=== PATIENT | female | born 1990 | race Caucasian/White ===

== ENCOUNTER 2018-02-19 07:27 | Inpatient (IN) | payer BC ==
[2018-02-19] MEDS ORDERED: Terbutaline 1 MG/ML SDV SUBCUT ONE (08:30)
[2018-02-19] MEDS ORDERED: hydrOXYzine HCl 25 MG Tab PO ONE ×2 (08:57→20:29)
--- NOTE | 2018-02-19 09:22 | PCM.LDHP ---
L&D History of Present Illness - General Date of Service: 02/19/18 (to follow ) Admit Problem/Dx: Patient Status Order with Admit Dx/Problem 02/19/18 08:03 Patient Status [ADT] Routine Admission Diagnosis/Problem Admission Diagnosis/Problem Breech presentation 02/19/18 09:18 breech presentation, requesting version attempt Source of Information: Patient, Family, Old Records, Provider History Limitations: Reports: No Limitations - History of Present Illness Introduction:: augusto 27yo @ 39w3d with breech presention requesting repeat attempt at external cephalic version Timing/Duration: Reports: other (none) Location, : Reports: Uterus - Related Data Allergies/Adverse Reactions: Allergies Allergy/AdvReac Type Severity Reaction Status Date / Time No Known Allergies Allergy Verified 02/19/18 07:40 Home Medications: Home Meds Vit W-Ca,Fe,FA(<1 mg) [ Vitamins] 1 each PO DAILY 02/04/18 [ History] Past Medical History - Past Health History Medical/Surgical History: Denies Medical/Surgical History Genitourinary History: Reports: STD (chlamydia Rx, BV) Social & Family History - Family History Family Medical History: Noncontributory - Tobacco Use Smoking Status *Q: Never Smoker Second Hand Smoke Exposure: No - Caffeine Use Caffeine Use: Reports: Coffee Other Caffeine Use: 1-2cups/day - Alcohol Use Date of Last Drink: 02/18/18 Time of Last Drink: 23:00 - Recreational Drug Use Recreational Drug Use: No H&P Review of Systems - Review of Systems: Review Of Systems: See Below General: Reports: No Symptoms HEENT: Reports: No Symptoms Pulmonary: Reports: No Symptoms Cardiovascular: Reports: No Symptoms Gastrointestinal: Reports: No Symptoms Genitourinary: Reports: No Symptoms Musculoskeletal: Reports: No Symptoms Skin: Reports: No Symptoms Psychiatric: Reports: No Symptoms Neurological: Reports: No Symptoms Hematologic/Lymphatic: Reports: No Symptoms Immunologic: Reports: No Symptoms L&D Exam - Exam Exam: See Below - Vital Signs Weight: 160 lb - OB Specific Movement: Active Heart Tones: Present Heart Tones per Min: 130 (reactive) Heart Rate (FHR) Variability: Moderate (6-25 bmp) Presentation: Breech - Exam General: Alert, Oriented HEENT: PERRLA, Conjunctiva Clear, EACs Clear, EOMI, Hearing Intact, Mucosa Moist & Sc[place], Nares Patent, Normal Nasal Septum, Posterior Pharynx Clear, TMs Clear Neck: Supple, Trachea Midline Lungs: Clear to Auscultation, Normal Respiratory Effort Cardiovascular: Regular Rate, Regular Rhythm GI/Abdominal Exam: Normal Bowel Sounds, Soft, Non-Tender, No Organomegaly, No Distention, No Abnormal Bruit, No Mass, Pelvis Stable Rectal Exam: Normal Exam, Normal Rectal Tone Genitourinary: Normal external exam, Normal bimanual exam, Normal speculum exam , Enlarged uterus Back Exam: Normal Inspection, Full Range of Motion Extremities: Normal Inspection, Normal Range of Motion, Non-Tender, No Pedal Edema, Normal Capillary Refill Skin: Warm, Dry, Intact Neurological: Cranial Nerves Intact, Reflexes Equal Bilateral Psychiatric: Alert, Normal Affect, Normal Mood - Problem List (1) Breech presentation SNOMED Code(s): 3510174 ICD Code: O32.1XX0 - MATERNAL CARE FOR BREECH PRESENTATION, UNSP Status: Acute Current Visit: Yes (2) Term SNOMED Code(s): 94719275 ICD Code: Z34.80 - ENCOUNTER FOR SUPRVSN OF NORMAL , UNSP TRIMESTER Status: Acute Current Visit: Yes Problem List Initiated/Reviewed/Updated: Yes Orders Last 24hrs: Active Orders 24 hr Category Date Time Status Patient Status [ADT] Routine ADT 02/19/18 08:03 Active Non Stress Test [RC] PER UNIT ROUTINE Care 02/19/18 08:03 Active Vital Signs [RC] PER UNIT ROUTINE Care 02/19/18 08:03 Active OB 2 Or 3 Tri Sgl 1st Gest [US] Routine Exams 02/19/18 08:09 Ordered OB Ltd 1 or More Fetus [US] Routine Exams 02/19/18 08:17 Ordered TYPE AND SCREEN [BBK] Routine Lab 02/19/18 08:30 Received Ondansetron [Zofran] Med 02/19/18 09:30 Once 4 mg IV ONETIME ONE fentaNYL [Sublimaze] Med 02/19/18 09:45 Once 50 mcg IVPUSH ONETIME ONE Resuscitation Status Routine Resus Stat 02/19/18 08:03 Ordered Medication Orders Fentanyl (Sublimaze) 50 mcg IVPUSH ONETIME ONE Stop: 02/19/18 09:46 Ondansetron HCl (Zofran) 4 mg IV ONETIME ONE Stop: 02/19/18 09:31 Assessment/Plan Comment:: plan: will proceed with versio attempt--repeat, per patient request. US has been in and confirmed position. head is in RUQ, spine on maternal lateral left, slightly posterior breech in pelvis. will get Atarax before procedure to help with relaxation and terbutaline side effects. terbutaline 15-30 inutes before procedure. talked with anesthesia re: management of discomfort. agree with Fentanyl 50 5-10 minutes beforehand to help with discomfort. He suggested Zofran before that to minimize nausea. all questions answered and consent obtained. Type and screen ordered. staff ready for stand-by in OR. If unsuccessful, pt will decide re: waiting for labor and possible sponetaneous turn to vertex, vs scheduling elective . she wishes to void if possible. she understands low likelihood of success today. b
[2018-02-19] MEDS ORDERED: Ondansetron 4 MG/2 ML SDV IV ONE (09:30)
[2018-02-19] MEDS ORDERED: fentaNYL 100 MCG/2 ML SDV IVPUSH ONE (09:45)
[2018-02-19] MEDS ORDERED: Tranexamic Acid 1,000 MG in Sodium Chloride 0.9% 100 ML IV PRN (10:08)
[2018-02-19] MEDS ORDERED: Lidocaine 1% 30 ML SDV INJECT PRN (10:08)
[2018-02-19] MEDS ORDERED: Lactated Ringers 500 ML IV ONE (10:08)
[2018-02-19] MEDS ORDERED: Misoprostol 400 MCG (4 X 100 MCG TAB) RECTAL PRN (10:08)
[2018-02-19] MEDS ORDERED: Carboprost Tromethamine 250 MCG/1 ML Amp IM PRN (10:08)
[2018-02-19] MEDS ORDERED: Methylergonovine 0.2 MG/1 ML Amp IM PRN (10:08)
--- NOTE | 2018-02-19 10:12 | PCM.SN ---
- Free Text/Narrative Note: DOS: 02-19-2018 Version successful: unstable lie cervix 1-2 cm 25-50% vertex BOWI Discussed options will proceed with induction low dose pitocin, starting @ 2, increasing by 1-2 @ 15-30min intervals. b
[2018-02-19] MEDS: Oxytocin/Normal Saline 30 UNIT/500 ML BAG IV SCH (10:47)
[2018-02-19] MEDS: Lactated Ringers 1,000 ML IV SCH ×2 (10:48→19:27)
[2018-02-19] MEDS: Sodium Chloride 0.9% 10 ML Syringe FLUSH PRN (10:51)
--- NOTE | 2018-02-19 14:53 | US ---
Clinical history: 27-year-old gravid female breech presentation. Obstetrical version. Interpretation: Enlarged uterus with fundal placenta and a single live ( heart rate 146 bpm) intrauterine gestat ion, breech presentation. Fetus clearly demonstrated in a cephalic presentation posterior clinical "version".
--- NOTE | 2018-02-19 18:11 | PCM.SN ---
- Free Text/Narrative Note: DOS: 02-19-18 6pm Fatuma and Fior in room. She is doing well. feeling cxns, some in back. continues to drain clear fluid. Contractions every 2-4 minutes. pitocin @ 16 baby active with reassuring Cat 1 strip. VSS cervical check now 2-3 cm, 75%, vertex now better applied clear fluid leaking with cervical check Fatuma with employ hydrotherapy will use underwater monitor consider continuing pitocin as needed, or stop and restart if indicated. discussed with pt and FOB. consider internals if indicated. all questions answered. further management pending her course in labor and response to Rx. hmb
[2018-02-19] MEDS ORDERED: Nalbuphine 10 MG/1 ML Vial IM ONE (20:30)
[2018-02-20] MEDS: Ondansetron 4 MG/2 ML SDV IV PRN ×2 (02:04→09:07)
[2018-02-20] MEDS: Lactated Ringers 1,000 ML IV SCH ×4 (02:07→16:14)
[2018-02-20] MEDS ORDERED: Bupivacaine 0.75%/D5W 2 ML Amp ONE ×2 (02:18→08:20)
[2018-02-20] MEDS ORDERED: EPINEPHrine 1 MG/ML SDV ONE ×2 (02:19→08:20)
[2018-02-20] MEDS ORDERED: fentaNYL 100 MCG/2 ML SDV ONE ×2 (02:19→08:20)
[2018-02-20] MEDS: ePHEDrine 50 MG/ML SDV ONE ×2 (02:45→03:00)
[2018-02-20] MEDS ORDERED: ePHEDrine 50 MG/ML SDV IVPUSH PRN ×2 (02:45→12:32)
--- NOTE | 2018-02-20 02:54 | PCM.SN ---
- Free Text/Narrative Note: Intrathecal. Sitting position. Sterile prep and drape. 1 % lidocaine w bicarb for skinwheal to L2 L3 interspace. Introducer, 24 ga pencan x 1. Pos CSF, neg heme, neg parasthesia. 0.1 ml pf 1:1000 epi, 0.4 ml pf ns, 15 mcg pf sufenta, 35 mcg pf fentanyl, and 6 mg of 0.75% pf bupivacaine injected after CSF aspiration. Pt to L lateral position. Procedure time 0220 to 0300
--- NOTE | 2018-02-20 06:59 | PCM.SN ---
- Free Text/Narrative Note: DOS: 02-20-18 Fatuma is doing well pitocin currently @ [address], working well for her continues to leak clear fluid baby active cxns every 2-3 minutes cervix 5-6cm, 95% effaced, still @ -2 station, -1 with cxn vtx, ?OP having some back pressure with cxns. has been in many positions through the night. Internals placed. IUPC placed without difficulty FSE placed both currently tracing well baseline 145, accels to 165-170 reactive, reassuring Cat 1 tracing. MVU adequate. will continue to monitor at this time. Fatuma understands that if cervix not changing with adequate contractions, we may need to proceed to section. all questions answered. hmb
[2018-02-20] MEDS: Oxytocin/Normal Saline 30 UNIT/500 ML BAG IV SCH (07:45)
--- NOTE | 2018-02-20 08:18 | PCM.SN ---
- Free Text/Narrative Note: DOS: 02-20-18 8 a.m. Doing well MVU were @ 135, so increasing pitocin, currently @ 22 Fatuma feeling cxns again, so I checked her cervix and she is now 6-7 vertex has come down quite a bit to zero/+1 station will have anesthesia come in and repeat her intrathecal for us. continue to monitor closely. all questions answered. further management pending her clinical course. sonam
--- NOTE | 2018-02-20 08:54 | PCM.SN ---
- Free Text/Narrative Note: Intrathecal. Sitting position. Sterile prep and drape. 1 % lidocaine w bicarb for skinwheal to L2 L3 interspace. Introducer, 24 ga pencan x 1. Pos CSF, neg heme, neg parasthesia. 0.1 ml pf 1:1000 epi, 0.4 ml pf ns, 15 mcg pf sufenta, 35 mcg pf fentanyl, and 6 mg of 0.75% pf bupivacaine injected after CSF aspiration. Pt to L lateral position. Procedure time 0830 to 0900
[2018-02-20] MEDS: Sodium Chloride 0.9% 10 ML Syringe FLUSH PRN (09:11)
[2018-02-20] MEDS ORDERED: Citric Acid/Sodium Citrate Solution 30 ML Cup PO ONE (10:20)
[2018-02-20] MEDS ORDERED: Lactated Ringers 1,000 ML IV ONE (10:30)
[2018-02-20] MEDS: ceFAZolin 2 GM in Sodium Chloride 0.9% 50 ML IV ONE ×2 (11:05→16:13)
--- NOTE | 2018-02-20 11:08 | PN ---
DATE: 02/20/2018 HISTORY OF PRESENT ILLNESS: This delightful 27-year-old primip is currently 39 and 4/7 weeks' gestation. She came in for trial of cephalic version. Baby had been in a breech presentation. We were able to turn the baby into a cephalic presentation; however, after induction and Pitocin augmentation of her labor, she has now been laboring with adequate contractions and has arrest of labor. She is currently 6 cm dilated and has been had that for over 4 hours. Internal monitors show adequate MVUs, and her Pitocin is currently at 24. Her cervix is swelling, and there is caput and molding. We have reviewed the options. The patient is wishing to proceed with primary low-transverse section, which is appropriate at this time. We have reviewed the procedure itself. We are hoping with reassuring status that we can go with spinal anesthesia and also Pfannenstiel skin incision. We are planning on a low transverse uterine incision. They understand the baby appears to be in a partial OP position and that does increase her risk for extension of her uterine incision with possible hemorrhage and need for blood transfusion with its inherent risk. We discussed the injury to maternal organs or the baby. We also reviewed risks such as, reaction to anesthesia or medications. She understands the risks such as DVT, PE, etc. This patient is a low surgical risk candidate. We have reviewed risk of infection and the use of antibiotics, and we will plan on 2 g of Ancef preop for her and continuing that for at least 24 hours. We have discussed the use of SCDs and BEE hose and early ambulation for her. All other questions were answered, and they wished to proceed. A CBC and type and screen have already been ordered. Dr. Argueta will be assisting and Dr. Garcia will be present to assist if needed. Consent has been obtained. She did have 1 elevated temperature, however, is not showing any signs of chorioamnionitis. We will continue to follow closely. The heart tracings remained reassuring. [facility] /[id number]
[2018-02-20] MEDS ORDERED: diphenhydrAMINE 50 MG/ML SDV IVPUSH PRN (12:32)
[2018-02-20] MEDS ORDERED: Naloxone 2 MG/2 ML Syringe IVPUSH PRN (12:32)
[2018-02-20] MEDS ORDERED: Ketorolac 30 MG/ML SDV IVPUSH SCH (12:45)
[2018-02-20 13:18] LABS: CHLORIDE,CL 108 mmol/L (101-111); SODIUM,NA 136 mmol/L (135-145)
--- NOTE | 2018-02-20 14:50 | OR ---
DATE: 02/20/2018 POSTOPERATIVE DIAGNOSES: 1. 39 and 5/7 weeks' gestation, 1, now para 1. 2. Blood type AB positive, group B strep negative, rubella immune. 3. Status post successful version procedure. 4. Induction of labor. 5. Primary low transverse section for failure to progress. 6. Persistent right occiput posterior position. 7. Maternal fever, ROM 20 hours with possible chorioamnionitis. OPERATIVE PROCEDURE: Primary low-transverse section. ASSISTANTS: 1. Charisse Argueta, PGY-III . 2. Dean Garcia MD, [facility]. ESTIMATED BLOOD LOSS: 700 mL. INTRAOPERATIVE COMPLICATIONS: None. FINDINGS: This 27-year-old 1, para 0, who presented as scheduled at 39 and 5/7th weeks gestation in breech presentation for scheduled attempted cephalic version, which was successful, and we are able to move the baby from a breech presentation into cephalic presentation. Subsequently due to the possible unstable lie, we did proceed with induction. Artificial rupture of membranes carried out followed by Pitocin use to get her into an active labor pattern. IUPC was placed and a scalp electrode. She did go into an effective labor pattern, and an IUPC did show adequate contraction pattern; however, her cervix failed to dilate past 6 cm despite adequate contractions. The baby was in the persistent ROP position. Her cervix was swelling, and caput was forming, and decision was made to proceed to section. She was also noted to have fever, TMax 101.4 on one occasion shortly before surgery. Clinically, we saw no other evidence of chorioamnionitis. DESCRIPTION OF PROCEDURE: The patient was given Ancef 2 g IV postop en route to the OR. The patient did receive an intrathecal x2 during her labor with excellent results. Her first spinal had partial blockade, though she had free flow of clear CSF during placement. The tracing and heart tones were reassuring; therefore, we elected to repeat her spinal, which subsequently had an excellent block. The patient was then redraped and re-prepped. The heart tones at that time were again checked and reassuring. The patient had a Watson catheter in place from previous placement. Her skin was marked with purple surgical incision with our intended sites. A time-out was performed in my presence. The skin was incised with scalpel. Electrocautery was used as necessary down through the subcutaneous tissue to the fascia. Cautery was used for any bleeders as indicated. Fascia was divided transversely, then inferior and superior fascial flaps were developed with sharp and blunt dissection. The rectus was identified and divided in the midline. The peritoneum was identified and entered bluntly. The space was opened until we had adequate visualization of the lower uterine segment. The XL Mateus was placed without difficulty. The bladder appeared to be attached high up on the uterus; therefore, bladder flap was developed with sharp and blunt dissection. A stab incision was made into the lower uterine segment and extended with blunt dissection. The amniotic sac bulged out of the incision, and this was entered bluntly, and return of clear amniotic fluid was noted. The vertex was elevated up into the incision and was indeed noted to be in ROP position. Cord was wrapped near the neck, but was not tight nuchal cord. It was easily moved out of the way, and the baby was delivered without difficulty. The cord was doubly clamped and cut, and the baby dried, stimulated, and bulb syringe was used, and the baby was suctioned, then carried to the warmer by Dr. Argueta to waiting nursery staff, and scores were later noted to be 7 and 8 at 1 and 5 minutes respectively. weight is 3255g/ 7lb 3oz. Three-vessel cord was noted, and the placenta was removed and later examined and found to be a complete and appeared intact. Uterus was wiped clean and dry. There were no remaining areas of placenta, and all the blood clots were removed. Uterine edges were grasped with Pelaez forceps and elevated, and uterus was then closed with running locking 0 Vicryl suture. Two figure of eight stitches were placed over the incision areas for hemostasis. Then, second layer of imbricating 0 Vicryl stitch was placed with good results. Incision was examined and found to be hemostatic. The gutters were examined, irrigated, aspirated and found to be clean. No sign of clots or active bleeding. The tubes, ovaries, and uterus appeared to be normal. The Mateus retractor was removed, and the incision was examined one more time and appeared hemostatic. Peritoneum brought together with [id number] Vicryl scrap stitch. Fascia was then closed with loop Maxon suture. Skin edges were brought together with johanne. The patient tolerated the procedure well. The uterus was firm. The patient did have 1 episode where she had some hypotension, which responded to anesthesia intervention with ephedrine and phenylephrine. She also received fluid resuscitation. Please see those notes for details. Due to the concern regarding possible chorioamnionitis, the patient has received antibiotics and blood cultures. CBC, urine culture, and BMP have been ordered. Clinically in recovery, she is stable. Her vitals are stable. Temperature is 98.0. Her flushed skin is much improved, and she is clinically doing well now that the placenta has been removed. The chorioamnionitis has essentially been treated if present, and we will continue to watch her clinically. I have reviewed this also with Dr. Garcia, and we will continue to monitor her clinical picture with further management pending her test results and clinical course. [facility] /[id number] MTDD
[2018-02-20] MEDS: Simethicone 80 MG Tab.Chew PO SCH (20:18)
[2018-02-20] MEDS: Docusate Sodium 100 MG Cap PO PRN (20:20)
[2018-02-20] MEDS: Ketorolac 30 MG/ML SDV IVPUSH SCH (20:22)
[2018-02-20] MEDS: NS + KCl 20mEq/L 1,000 ML IV SCH (22:54)
[2018-02-21] MEDS: Ketorolac 30 MG/ML SDV IVPUSH SCH ×2 (02:33→08:50)
[2018-02-21] MEDS: Simethicone 80 MG Tab.Chew PO SCH ×5 (03:17→21:52)
--- NOTE | 2018-02-21 04:54 | PCM.PNPP ---
- General Info Date of Service: 02/21/18 Admission Dx/Problem (Free Text): Patient Status Order with Admit Dx/Problem 02/19/18 08:03 Patient Status [ADT] Routine Admission Diagnosis/Problem Admission Diagnosis/Problem Breech presentation 02/19/18 09:18 breech presentation, requesting version attempt Subjective Update: Fatuma is post-op day 1 from pLTCS for failure to progress and elevated maternal temps. Baby was transferred to [place] last night. Fatuma has had no fevers, chills, chest pain, shortness of breath, leg swelling. She has been out of bed, galloway has not been removed. She is breast feeding. Bleeding is mild. Pain is well controlled. No bowel movements. She is tolerating a diet. Functional Status: Reports: Pain Controlled - General Info Date of Service: 02/21/18 - Patient Data Vital Signs - Most Recent: Last Vital Signs Temp 36.6 C 02/21/18 04:00 Pulse 91 02/21/18 04:00 Resp 16 02/21/18 04:00 BP 96/49 L 02/21/18 04:00 Pulse Ox 97 02/21/18 04:00 Weight - Most Recent: 73.028 kg I&O - Last 24 Hours: Intake & Output 02/20/18 02/20/18 02/21/18 14:59 22:59 06:59 Intake Total 1346 2750 Output Total 660 426 Balance 1346 2090 -426 Lab Results - Last 24 Hours: Laboratory Results - last 24 hr 02/20/18 02/20/18 Range/Units 12:35 12:35 WBC 18.6 H (5.0-10.0) 10^3/uL RBC 4.00 L (4.2-5.4) 10^6/uL Hgb 11.9 L (12.0-16.0) g/dL Hct 35.8 L (37.0-47.0) % MCV 89.5 (80-100) fL MCH 29.8 (27.0-34.0) pg MCHC 33.2 (33.0-35.0) g/dL Plt Count 131 L (150-450) 10^3/uL Sodium 136 (135-145) mmol/L Potassium 3.3 L (3.6-5.0) mmol/L Chloride 108 (101-111) mmol/L Carbon Dioxide 20.0 L (21.0-31.0) mmol/L Anion Gap 11.3 BUN 9 (7-18) mg/dL Creatinine 0.9 (0.6-1.3) mg/dL Est Cr Clr Drug Dosing 75.58 mL/min Estimated GFR (MDRD) > 60 Glucose 102 (74-105) mg/dL Calcium 8.5 (8.4-10.2) mg/dl Med Orders - Current: Current Medications Acetaminophen (Tylenol) 650 mg PO Q4H PRN PRN Reason: Pain (Mild 1-3) and fever Carboprost Tromethamine (Hemabate Ds) 250 mcg IM ASDIRECTED PRN PRN Reason: HEMORRHAGE Diphenhydramine HCl (Benadryl) 25 mg IVPUSH Q6H PRN PRN Reason: Itching or Nausea Last Admin: 02/20/18 20:20 Dose: 25 mg Docusate Sodium (Colace) 100 mg PO Q12H PRN PRN Reason: Constipation Last Admin: 02/20/18 20:20 Dose: 100 mg Ephedrine Sulfate (Ephedrine Sulfate) 10 mg IVPUSH ASDIRECTED PRN PRN Reason: Other Last Admin: 02/20/18 09:08 Dose: 10 mg Ephedrine Sulfate (Ephedrine Sulfate) 5 mg IVPUSH SEECOMMENT PRN PRN Reason: Other Tranexamic Acid 1,000 mg/ (Sodium Chloride) 110 mls @ 660 mls/hr IV ONETIME PRN PRN Reason: Bleeding Oxytocin/Sodium Chloride (Pitocin In Ns 30 Unit/500 Ml) 30 unit in 500 mls @ 500 mls/hr IV TITRATE ESEQU[facility]EL; Protocol Last Titration: 02/20/18 17:45 Dose: 0 mls/hr, 0 mls/hr Potassium Chloride/Sodium Chloride (Normal Saline With 20 Meq Kcl) 1,000 mls @ 125 mls/hr IV ASDIRECTED [facility] Last Admin: 02/20/18 22:54 Dose: 125 mls/hr Ibuprofen (Motrin) 800 mg PO Q8H PRN PRN Reason: mild pain or fever Ketorolac Tromethamine (Toradol) 15 mg IVPUSH Q6H [facility] Stop: 02/21/18 06:01 Last Admin: 02/21/18 02:33 Dose: 15 mg Lidocaine HCl (Xylocaine-Mpf 1%) 30 ml INJECT ASDIRECTED PRN PRN Reason: Perineal Repair Methylergonovine Maleate (Methergine) 0.2 mg IM ASDIRECTED PRN PRN Reason: Hemorrhage Misoprostol (Cytotec) 800 mcg RECTAL ASDIRECTED PRN PRN Reason: Hemorrhage Naloxone HCl (Narcan) 0.1 mg IVPUSH SEECOMMENT PRN PRN Reason: Respiratory Depression Ondansetron HCl (Zofran) 4 mg IV Q4H PRN PRN Reason: Nausea/Vomiting Last Admin: 02/20/18 09:07 Dose: 4 mg Oxycodone/Acetaminophen (Percocet 325-5 Mg) 1 tab PO Q4H PRN PRN Reason: Pain (moderate 4-6) Oxycodone/Acetaminophen (Percocet 325-5 Mg) 2 tab PO Q4H PRN PRN Reason: Pain (moderate 4-6) Simethicone (Simethicone) 160 mg PO QID ESEQUIEL Last Admin: 02/21/18 03:17 Dose: Not Given Sodium Chloride (Saline Flush) 10 ml FLUSH ASDIRECTED PRN PRN Reason: Keep Vein Open Last Admin: 02/20/18 09:11 Dose: 10 ml Discontinued Medications Bupivacaine HCl/Dextrose (Marcaine 0.75% Spinal) Confirm Administered Dose 2 ml .ROUTE .STK-MED ONE Stop: 02/20/18 02:19 Last Admin: 02/20/18 02:51 Dose: Not Given Bupivacaine HCl/Dextrose (Marcaine 0.75% Spinal) Confirm Administered Dose 2 ml .ROUTE .STK-MED ONE Stop: 02/20/18 08:21 Last Admin: 02/20/18 22:29 Dose: Not Given Citric Acid/Sodium Citrate (Bicitra Solution) 30 ml PO ONETIME ONE Stop: 02/20/18 10:21 Last Admin: 02/20/18 10:50 Dose: 30 ml Ephedrine Sulfate (Ephedrine Sulfate) Confirm Administered Dose 50 mg .ROUTE .STK-MED ONE Stop: 02/20/18 02:37 Last Admin: 02/20/18 03:00 Dose: 10 mg Epinephrine HCl (Adrenalin) Confirm Administered Dose 1 mg .ROUTE .STK-MED ONE Stop: 02/20/18 02:20 Last Admin: 02/20/18 02:51 Dose: Not Given Epinephrine HCl (Adrenalin) Confirm Administered Dose 1 mg .ROUTE .STK-MED ONE Stop: 02/20/18 08:21 Last Admin: 02/20/18 22:29 Dose: Not Given Fentanyl (Sublimaze) 50 mcg IVPUSH ONETIME ONE Stop: 02/19/18 09:46 Last Admin: 02/19/18 09:44 Dose: 50 mcg Fentanyl (Sublimaze) Confirm Administered Dose 100 mcg .ROUTE .STK-MED ONE Stop: 02/20/18 02:20 Last Admin: 02/20/18 02:52 Dose: Not Given Fentanyl (Sublimaze) Confirm Administered Dose 100 mcg .ROUTE .STK-MED ONE Stop: 02/20/18 08:21 Last Admin: 02/20/18 22:30 Dose: Not Given Hydroxyzine HCl (Atarax) 50 mg PO ONETIME ONE Stop: 02/19/18 08:58 Last Admin: 02/19/18 09:34 Dose: 50 mg Hydroxyzine HCl (Atarax) 50 mg PO ONETIME ONE Stop: 02/19/18 20:30 Last Admin: 02/19/18 20:43 Dose: 50 mg Lactated Ringer's (Ringers, Lactated) 500 mls @ 500 mls/hr IV .BOLUS ONE Stop: 02/19/18 11:07 Last Admin: 02/20/18 16:12 Dose: Not Given Lactated Ringer's (Ringers, Lactated) 1,000 mls @ 125 mls/hr IV ASDIRECTED [facility] Last Admin: 02/20/18 16:14 Dose: 125 mls/hr Cefazolin Sodium 2 gm/ Sodium (Chloride) 50 mls @ 100 mls/hr IV ONETIME ONE Stop: 02/20/18 10:47 Last Admin: 02/20/18 16:13 Dose: Not Given Lactated Ringer's (Ringers, Lactated) 1,000 mls @ 500 mls/hr IV .BOLUS ONE Stop: 02/20/18 12:29 Last Admin: 02/20/18 16:15 Dose: Not Given Ketorolac Tromethamine (Toradol) 15 mg IVPUSH Q6H [facility] Stop: 02/21/18 00:46 Last Admin: 02/20/18 22:47 Dose: Not Given Nalbuphine HCl (Nubain) 20 mg IM ONETIME ONE Stop: 02/19/18 20:31 Last Admin: 02/19/18 20:57 Dose: 20 mg Ondansetron HCl (Zofran) 4 mg IV ONETIME ONE Stop: 02/19/18 09:31 Last Admin: 02/19/18 09:42 Dose: 4 mg Sodium Bicarbonate (Sodium Bicarbonate 4.2%) Confirm Administered Dose 5 meq .ROUTE .STK-MED ONE Stop: 02/20/18 02:21 Last Admin: 02/20/18 02:52 Dose: Not Given Sodium Bicarbonate (Sodium Bicarbonate 4.2%) Confirm Administered Dose 5 meq .ROUTE .STK-MED ONE Stop: 02/20/18 08:22 Last Admin: 02/20/18 22:30 Dose: Not Given Sufentanil Citrate (Sufenta) Confirm Administered Dose 50 mcg .ROUTE .STK-MED ONE Stop: 02/20/18 02:20 Last Admin: 02/20/18 02:52 Dose: Not Given Sufentanil Citrate (Sufenta) Confirm Administered Dose 50 mcg .ROUTE .STK-MED ONE Stop: 02/20/18 08:21 Last Admin: 02/20/18 22:30 Dose: Not Given Terbutaline Sulfate (Brethine) 0.25 mg SUBCUT ONETIME ONE Stop: 02/19/18 08:31 Last Admin: 02/19/18 09:38 Dose: 0.25 mg - Interaction Infant Disposition, : baby in NICU in [place] Infant Feeding: Other (see below) (Encouraged to start pumping) Support Person: Sister, Significant Other - Recovery Exam Fundal Tone: Firm Fundal Level: 2 Fingerbreadths Below Umbilicus Fundal Placement: Midline Lochia Amount: Scant Lochia Color: Rubra/Red Perineum Description: Intact, Minimal Bruising/Swelling Episiotomy/Laceration: None Bladder Status: Indwelling Catheter in Place - Exam General: Alert, Oriented HEENT: Pupils Equal Neck: Supple Lungs: Clear to Auscultation, Normal Respiratory Effort Cardiovascular: Regular Rate, Regular Rhythm GI/Abdominal Exam: Normal Bowel Sounds, Soft, Non-Tender, No Organomegaly, No Distention, No Abnormal Bruit, No Mass, Pelvis Stable Extremities: Normal Inspection, Normal Range of Motion, Non-Tender, No Pedal Edema, Normal Capillary Refill Skin: Warm, Dry, Intact Wound/Incisions: Healing Well, Dressing Dry and Intact Neurological: No New Focal Deficit Psy/Mental Status: Alert, Normal Affect, Normal Mood - Problem List & Annotations (1) delivery delivered SNOMED Code(s): 201715032 Code(s): O82 - ENCOUNTER FOR DELIVERY WITHOUT INDICATION Status: Acute Current Visit: Yes - Problem List Review Problem List Initiated/Reviewed/Updated: Yes - Assessment Assessment:: POD1 pLTCS due to failure to progress Elevated peripartum temps - Plan Plan:: Routine post-ceserean cares Ibuprofen, tylenol, and narcotics for pain control Stool softners. Recheck hemoglobin this morning Baby in [place]; hopes for discharge tomorrow to go and be with her Get out of bed, remove galloway Start pumping. General diet; encourage oral hydration Saline lock with good output Charisse Argueta MD PGYIII
[2018-02-21] MEDS: NS + KCl 20mEq/L 1,000 ML IV SCH (06:59)
[2018-02-21 07:00] LABS: CHLORIDE,CL 111 mmol/L (101-111); SODIUM,NA 136 mmol/L (135-145)
[2018-02-21] MEDS: Acetaminophen/oxyCODONE 325-5 MG Tab PO PRN ×3 (08:48→18:15)
[2018-02-21] MEDS: Sodium Chloride 0.9% 10 ML Syringe FLUSH PRN (08:54)
[2018-02-21] MEDS: Ibuprofen 800 MG Tab PO PRN (16:48)
[2018-02-21] MEDS: Docusate Sodium 100 MG Cap PO PRN (21:52)
[2018-02-21] MEDS: Acetaminophen 325 MG Tab PO PRN (21:52)
[2018-02-22] MEDS: Ibuprofen 800 MG Tab PO PRN (01:07)
[2018-02-22] MEDS: Acetaminophen 325 MG Tab PO PRN (06:10)
--- NOTE | 2018-02-22 07:27 | PCM.DCSUM1 ---
Discharge Summary - Hospital Course Free Text/Narrative:: Fatuma is now a female who was induced at 39w3d after successful version. She failed to progress and underwent pLTCS at 39w4d. She did have some elevated temps prior to delivery, TMAx 101.4. She has been afebrile since delivery. She is up walking, pain is well controlled, she is pumping a good amount of colustrum, no leg swelling. No headaches, vision changes. She is passing gas and had a bowel movement yesterday. Tolerating a general diet. - Discharge Data Discharge Date: 02/22/18 Discharge Disposition: Home, Self-Care 01 Condition: Good - Discharge Diagnosis/Problem(s) (1) delivery delivered SNOMED Code(s): 195729479 ICD Code: O82 - ENCOUNTER FOR DELIVERY WITHOUT INDICATION Status: Acute Current Visit: Yes - Patient Summary/Data Operative Procedure(s) Performed: pLTCS Labs Pending at D/C: CBC - Patient Instructions Diet: Regular Diet as Tolerated Activity: As Tolerated Driving: May Drive Today Showering/Bathing: May Shower Wound/Incision Care: Keep Operative Site/Wound Site Clean and Dry Notify Provider of: Fever, Increased Pain, Swelling and Redness, Drainage, Nausea and/or Vomiting - Discharge Plan Home Medications: Home Meds Vit W-Ca,Fe,FA(<1 mg) [ Vitamins] 1 each PO DAILY 02/04/18 [ History] Patient Handouts: Home Care Instructions for Mom, Care After Delivery - Discharge Summary/Plan Comment Discharge Summary/Plan Comment: Discharge patient on POD2 so she can go to [place] with her baby. Will follow up on a cbc today. Discussed routine post-op cares Discussed when to call her provider Incision check in 2 weeks. Charisse Argueta MD PGYIII - Patient Data Vitals - Most Recent: Last Vital Signs Temp 36.7 C 02/22/18 07:15 Pulse 87 02/22/18 07:15 Resp 16 02/22/18 07:15 BP 120/76 02/22/18 07:15 Pulse Ox 100 02/22/18 07:15 Weight - Most Recent: 73.028 kg TUAN Results - Last 24 hrs: Microbiology 02/20/18 12:34 Urine Culture - Final Urine, Catheterized NO GROWTH AFTER 2 DAYS 02/20/18 12:40 Aerobic Blood Culture - Preliminary Blood - Venous - Lab Draw NO GROWTH AFTER 1 DAY Anaerobic Blood Culture - Preliminary NO GROWTH AFTER 1 DAY 02/20/18 12:35 Aerobic Blood Culture - Preliminary Blood - Venous NO GROWTH AFTER 1 DAY Anaerobic Blood Culture - Preliminary NO GROWTH AFTER 1 DAY Med Orders - Current: Current Medications Acetaminophen (Tylenol) 650 mg PO Q4H PRN PRN Reason: Pain (Mild 1-3) and fever Last Admin: 02/22/18 06:10 Dose: 650 mg Carboprost Tromethamine (Hemabate Ds) 250 mcg IM ASDIRECTED PRN PRN Reason: HEMORRHAGE Diphenhydramine HCl (Benadryl) 25 mg IVPUSH Q6H PRN PRN Reason: Itching or Nausea Last Admin: 02/20/18 20:20 Dose: 25 mg Docusate Sodium (Colace) 100 mg PO Q12H PRN PRN Reason: Constipation Last Admin: 02/21/18 21:52 Dose: 100 mg Ephedrine Sulfate (Ephedrine Sulfate) 10 mg IVPUSH ASDIRECTED PRN PRN Reason: Other Last Admin: 02/20/18 09:08 Dose: 10 mg Ephedrine Sulfate (Ephedrine Sulfate) 5 mg IVPUSH SEECOMMENT PRN PRN Reason: Other Ferrous Sulfate (Ferrous Sulfate) 325 mg PO WITHBREAKFAST [facility] Tranexamic Acid 1,000 mg/ (Sodium Chloride) 110 mls @ 660 mls/hr IV ONETIME PRN PRN Reason: Bleeding Oxytocin/Sodium Chloride (Pitocin In Ns 30 Unit/500 Ml) 30 unit in 500 mls @ 500 mls/hr IV TITRATE [facility]; Protocol Last Titration: 02/20/18 17:45 Dose: 0 mls/hr, 0 mls/hr Ibuprofen (Motrin) 800 mg PO Q8H PRN PRN Reason: mild pain or fever Last Admin: 02/22/18 01:07 Dose: 800 mg Lidocaine HCl (Xylocaine-Mpf 1%) 30 ml INJECT ASDIRECTED PRN PRN Reason: Perineal Repair Methylergonovine Maleate (Methergine) 0.2 mg IM ASDIRECTED PRN PRN Reason: Hemorrhage Misoprostol (Cytotec) 800 mcg RECTAL ASDIRECTED PRN PRN Reason: Hemorrhage Naloxone HCl (Narcan) 0.1 mg IVPUSH SEECOMMENT PRN PRN Reason: Respiratory Depression Ondansetron HCl (Zofran) 4 mg IV Q4H PRN PRN Reason: Nausea/Vomiting Last Admin: 02/20/18 09:07 Dose: 4 mg Oxycodone/Acetaminophen (Percocet 325-5 Mg) 1 tab PO Q4H PRN PRN Reason: Pain (moderate 4-6) Last Admin: 02/21/18 14:06 Dose: 1 tab Oxycodone/Acetaminophen (Percocet 325-5 Mg) 2 tab PO Q4H PRN PRN Reason: Pain (moderate 4-6) Last Admin: 02/21/18 18:15 Dose: 2 tab Simethicone (Simethicone) 160 mg PO QID ESEQUIEL Last Admin: 02/21/18 21:52 Dose: 160 mg Sodium Chloride (Saline Flush) 10 ml FLUSH ASDIRECTED PRN PRN Reason: Keep Vein Open Last Admin: 02/21/18 08:54 Dose: 10 ml Discontinued Medications Bupivacaine HCl/Dextrose (Marcaine 0.75% Spinal) Confirm Administered Dose 2 ml .ROUTE .STK-MED ONE Stop: 02/20/18 02:19 Last Admin: 02/20/18 02:51 Dose: Not Given Bupivacaine HCl/Dextrose (Marcaine 0.75% Spinal) Confirm Administered Dose 2 ml .ROUTE .STK-MED ONE Stop: 02/20/18 08:21 Last Admin: 02/20/18 22:29 Dose: Not Given Citric Acid/Sodium Citrate (Bicitra Solution) 30 ml PO ONETIME ONE Stop: 02/20/18 10:21 Last Admin: 02/20/18 10:50 Dose: 30 ml Ephedrine Sulfate (Ephedrine Sulfate) Confirm Administered Dose 50 mg .ROUTE .STK-MED ONE Stop: 02/20/18 02:37 Last Admin: 02/20/18 03:00 Dose: 10 mg Epinephrine HCl (Adrenalin) Confirm Administered Dose 1 mg .ROUTE .STK-MED ONE Stop: 02/20/18 02:20 Last Admin: 02/20/18 02:51 Dose: Not Given Epinephrine HCl (Adrenalin) Confirm Administered Dose 1 mg .ROUTE .STK-MED ONE Stop: 02/20/18 08:21 Last Admin: 02/20/18 22:29 Dose: Not Given Fentanyl (Sublimaze) 50 mcg IVPUSH ONETIME ONE Stop: 02/19/18 09:46 Last Admin: 02/19/18 09:44 Dose: 50 mcg Fentanyl (Sublimaze) Confirm Administered Dose 100 mcg .ROUTE .STK-MED ONE Stop: 02/20/18 02:20 Last Admin: 02/20/18 02:52 Dose: Not Given Fentanyl (Sublimaze) Confirm Administered Dose 100 mcg .ROUTE .STK-MED ONE Stop: 02/20/18 08:21 Last Admin: 02/20/18 22:30 Dose: Not Given Hydroxyzine HCl (Atarax) 50 mg PO ONETIME ONE Stop: 02/19/18 08:58 Last Admin: 02/19/18 09:34 Dose: 50 mg Hydroxyzine HCl (Atarax) 50 mg PO ONETIME ONE Stop: 02/19/18 20:30 Last Admin: 02/19/18 20:43 Dose: 50 mg Lactated Ringer's (Ringers, Lactated) 500 mls @ 500 mls/hr IV .BOLUS ONE Stop: 02/19/18 11:07 Last Admin: 02/20/18 16:12 Dose: Not Given Lactated Ringer's (Ringers, Lactated) 1,000 mls @ 125 mls/hr IV ASDIRECTED [facility] Last Admin: 02/20/18 16:14 Dose: 125 mls/hr Cefazolin Sodium 2 gm/ Sodium (Chloride) 50 mls @ 100 mls/hr IV ONETIME ONE Stop: 02/20/18 10:47 Last Admin: 02/20/18 16:13 Dose: Not Given Lactated Ringer's (Ringers, Lactated) 1,000 mls @ 500 mls/hr IV .BOLUS ONE Stop: 02/20/18 12:29 Last Admin: 02/20/18 16:15 Dose: Not Given Potassium Chloride/Sodium Chloride (Normal Saline With 20 Meq Kcl) 1,000 mls @ 125 mls/hr IV ASDIRECTED [facility] Stop: 02/21/18 11:00 Last Admin: 02/21/18 06:59 Dose: 125 mls/hr Ketorolac Tromethamine (Toradol) 15 mg IVPUSH Q6H [facility] Stop: 02/21/18 00:46 Last Admin: 02/20/18 22:47 Dose: Not Given Ketorolac Tromethamine (Toradol) 15 mg IVPUSH Q6H [facility] Stop: 02/21/18 06:01 Last Admin: 02/21/18 08:50 Dose: 15 mg Nalbuphine HCl (Nubain) 20 mg IM ONETIME ONE Stop: 02/19/18 20:31 Last Admin: 02/19/18 20:57 Dose: 20 mg Ondansetron HCl (Zofran) 4 mg IV ONETIME ONE Stop: 02/19/18 09:31 Last Admin: 02/19/18 09:42 Dose: 4 mg Sodium Bicarbonate (Sodium Bicarbonate 4.2%) Confirm Administered Dose 5 meq .ROUTE .STK-MED ONE Stop: 02/20/18 02:21 Last Admin: 02/20/18 02:52 Dose: Not Given Sodium Bicarbonate (Sodium Bicarbonate 4.2%) Confirm Administered Dose 5 meq .ROUTE .STK-MED ONE Stop: 02/20/18 08:22 Last Admin: 02/20/18 22:30 Dose: Not Given Sufentanil Citrate (Sufenta) Confirm Administered Dose 50 mcg .ROUTE .STK-MED ONE Stop: 02/20/18 02:20 Last Admin: 02/20/18 02:52 Dose: Not Given Sufentanil Citrate (Sufenta) Confirm Administered Dose 50 mcg .ROUTE .STK-MED ONE Stop: 02/20/18 08:21 Last Admin: 02/20/18 22:30 Dose: Not Given Terbutaline Sulfate (Brethine) 0.25 mg SUBCUT ONETIME ONE Stop: 02/19/18 08:31 Last Admin: 02/19/18 09:38 Dose: 0.25 mg - Exam General: Reports: Alert, Oriented HEENT: Reports: Pupils Equal, Pupils Reactive, EOMI, Mucous Membr. Moist/[place] Neck: Reports: Supple Lungs: Reports: Clear to Auscultation, Normal Respiratory Effort Cardiovascular: Reports: Regular Rate, Regular Rhythm GI/Abdominal Exam: Normal Bowel Sounds, Soft, Non-Tender, No Organomegaly, No Distention, No Abnormal Bruit, No Mass, Pelvis Stable Back Exam: Reports: Normal Inspection, Full Range of Motion Extremities: Normal Inspection, Normal Range of Motion, Non-Tender, No Pedal Edema, Normal Capillary Refill Skin: Reports: Warm, Dry, Intact Wound/Incisions: Reports: Healing Well, Dressing Dry and Intact Neurological: Reports: No New Focal Deficit Psy/Mental Status: Reports: Alert, Normal Affect, Normal Mood
[2018-02-22] MEDS ORDERED: Ferrous Sulfate 325 MG Tab PO SCH (08:00)
[2018-02-22] MEDS: Simethicone 80 MG Tab.Chew PO SCH (08:07)
[2018-02-22] MEDS: Acetaminophen/oxyCODONE 325-5 MG Tab PO PRN (08:31)
[2018-02-22] MEDS ORDERED: Oxytocin/Normal Saline 30 UNIT/500 ML BAG IV ONE (11:09)
[2018-02-22] MEDS ORDERED: ePHEDrine 50 MG/ML SDV IV ONE (11:09)
[2018-02-22] MEDS ORDERED: Lactated Ringers 1,000 ML IV ONE (11:09)
[2018-02-22] MEDS ORDERED: Dexamethasone 4 MG/ML SDV IV ONE (11:09)
[2018-02-22] MEDS ORDERED: Ondansetron 4 MG/2 ML SDV IV ONE (11:09)
[2018-02-22] MEDS ORDERED: fentaNYL 100 MCG/2 ML SDV ITHECAL ONE (11:09)
[2018-02-22] MEDS ORDERED: Phenylephrine 1% 10 MG/ML SDV IV ONE (11:09)
[2018-02-22] MEDS ORDERED: Ketorolac 30 MG/ML SDV IVPUSH ONE (11:09)
[2018-02-22] MEDS ORDERED: EPINEPHrine 1 MG/ML SDV IV ONE (11:09)
[2018-02-22] MEDS ORDERED: Bupivacaine 0.75%/D5W 2 ML Amp ONE (11:09)
== END 2018-02-22 11:10 | disposition home or self-care (01) | DRG 540 ==
LOC: DL.OBCHECK 07:27 → DL.OB 10:09 → OBSVTOIN 02-20 11:45
PROVIDERS: ADMIT Family Medicine; ATTEND Family Medicine
PROC: 10S0XZZ Reposition Products of Conception, External Approach (ICD-10-PCS; 2018-02-19)
PROC: 10D00Z1 Extraction of Products of Conception, Low, Open Approach (ICD-10-PCS; principal; 2018-02-20)
PROC: 10H07YZ Insertion of Other Device into Products of Conception, Via Natural or Artificial Opening (ICD-10-PCS; 2018-02-20)
PROC: 10907ZC Drainage of Amniotic Fluid, Therapeutic from Products of Conception, Via Natural or Artificial Opening (ICD-10-PCS; 2018-02-20)
DX: O62.0 Primary inadequate contractions (principal); O41.1230 Chorioamnionitis, third trimester, not applicable or unspecified; O32.1XX0 Maternal care for breech presentation, not applicable or unspecified; Z3A.39 39 weeks gestation of pregnancy; Z37.0 Single live birth; O32.0XX0 Maternal care for unstable lie, not applicable or unspecified
CPT/HCPCS: 36415; 51702; 59025; 59412; 76815; 80048; 85025; 85027; 86850; 86900; 86901; 87040; 87086; A9270-GY; J0171; J0690; J1100; J1200; J1885; J2300; J2370; J2405; J2590; J3010; J3105; J3480; J7050; J7120